=== PATIENT | female | born 1995 | race Caucasian/White ===

== ENCOUNTER 2016-08-09 07:40 | Inpatient (IN) | payer OTHER ==
[~2016-08-09] VITALS: Ht 165.1 cm; Wt 105.6 kg
[~2016-08-09 07:40] MED LIST: ABILIFY10 MG PO; ARIPIPRAZOLE15 MG PO; BENTYL10 MG PO; BUSPAR15 MG PO; ELAVIL50 MG PO; FETZIMA40 MG PO; FIORICET 50-301 EACH PO; LEXAPRO20 MG PO; MOTRIN400 MG PO; OMEPRAZOLE20 MG PO; TOPAMAX100 MG PO
[2016-08-09 08:44] LABS: INTERNAL CONTROL VALID? YES
[2016-08-09 08:50] LABS: AMPHETAMINE NEGATIVE (500 ng/mL); BARBITURATES NEGATIVE (200 ng/mL); BENZODIAZEPINES PRESUMPTIVE POSITIVE (150 ng/mL); COCAINE NEGATIVE (150 ng/mL); INTERNAL CONTROLS VALID? YES; METHADONE NEGATIVE (200 ng/mL); METHAMPHETAMINE NEGATIVE (500 ng/mL); OPIATES (MORPHINE) NEGATIVE (100 ng/mL); OXYCODONE NEGATIVE (100 ng/mL); PHENCYCLIDINE NEGATIVE (25 ng/mL); PROPOXYPHENE NEGATIVE (300 ng/mL); THC CANNABINOIDS NEGATIVE (50 ng/mL); TRICYCLIC ANTIDEPRESSANTS PRESUMPTIVE POSITIVE (300 ng/mL)
[2016-08-09 08:51] LABS: ADD MEDTOX COMMENT Y
[2016-08-09 09:17] LABS: BILIRUBIN NEGATIVE; BLOOD NEGATIVE; COLOR YELLOW ((YELLOW)); GLUCOSE (STRIP) NEGATIVE; KETONES NEGATIVE; LEUKOCYTES NEGATIVE; NITRITE NEGATIVE; PROTEIN (STRIP) NEGATIVE; SPECIFIC GRAVITY 1.014 (1.000-1.030); UROBILINOGEN 0.2 MG/DL (0.2-1.0)
[2016-08-09 09:18] LABS: ADD MIUA? NO; UCUL ADDED? NO
[2016-08-09 09:39] LABS: HEMATOCRIT 39.6 % (36.0-46.0); MCH 26.3 PG (29.0-34.0); MCHC 31.3 G/DL (30.0-36.0); MCV 83.9 FL (83-99); MEAN PLAT.VOLUME 10.6 uM^3 (9.5-12.4); PLATELET COUNT 396 K/uL (156-360); RBC DIS.WIDTH-CV 15.8 % (11.8-14.6); RED BLOOD COUNT 4.72 M/uL (3.80-5.20); WHITE BLOOD COUNT 10.7 K/uL (4.1-10.2)
[2016-08-09 09:39] LABS: BENZODIAZEPINES, URINE SCREEN POSITIVE (200 ng/mL)
[2016-08-09 09:50] LABS: CHLORIDE 108 mEq/L (99-109); POTASSIUM 4.1 mEq/L (3.7-5.4); SODIUM 138 mEq/L (136-147)
[2016-08-09 09:52] LABS: GLUCOSE 246 mg/dL (70-99)
[2016-08-09 09:53] LABS: ANION GAP 9 MEQ/L (2-14)
[2016-08-09 09:55] LABS: SERUM ETHYL ALCOHOL < 10 mg/dL
[2016-08-09 09:56] LABS: GFR ESTIMATE (CALCULATED) > 59 mL/min/
[2016-08-09 09:57] LABS: UREA NITROGEN (BUN) 11 mg/dL (9-23)
[2016-08-09 12:50] VITALS: BP 123/83
[2016-08-09] MEDS ORDERED: ABILIFY10 MG PO (12:56)
[2016-08-09] MEDS ORDERED: ZANTAC150 MG PO (12:57)
[2016-08-09] MEDS ORDERED: COMPAZINE10 MG PO (13:01)
[2016-08-09] MEDS ORDERED: NAPROSYN500 MG PO (13:03)
[2016-08-09] MEDS ORDERED: FALMINA1 EACH PO (13:03)
[2016-08-09] MEDS ORDERED: FETZIMA120 MG PO (13:04)
[2016-08-09] MEDS ORDERED: VALIUM10 MG PO (13:06)
[2016-08-09 15:55] VITALS: BP 122/69
[2016-08-09 20:37] LABS: EOSINOPHIL (%) 2.5 % (0-5); EOSINOPHIL COUNT 0.4 K/uL (0-0.3); HEMATOCRIT 41.9 % (36.0-46.0); IMMATURE GRANULOCYTE (%) 0.4 % (0.0-0.7); IMMATURE GRANULOCYTE COUNT 0.1 K/uL; LYMPHOCYTE COUNT 4.9 K/uL (1.0-2.8); MCHC 31.7 G/DL (30.0-36.0); MEAN PLAT.VOLUME 10.9 uM^3 (9.5-12.4); MONOCYTE (%) 6.6 % (3-12); MONOCYTE COUNT 1.1 K/uL (0-0.8); NEUTROPHIL (%) 59.3 % (45-76); NEUTROPHIL COUNT 9.4 K/uL (1.8-6.4); PLATELET COUNT 504 K/uL (156-360); RBC DIS.WIDTH-CV 15.9 % (11.8-14.6); RBC DIS.WIDTH-SD 49.3 % (39-53); RED BLOOD COUNT 4.93 M/uL (3.80-5.20); WHITE BLOOD COUNT 15.8 K/uL (4.1-10.2)
[2016-08-09 20:56] LABS: D-DIMER ELISA 0.48 mg/L FEU (< 0.57)
[2016-08-09 20:59] LABS: ANION GAP 9 MEQ/L (2-14); CHLORIDE 105 MEQ/L (99-109); POTASSIUM 4.5 MEQ/L (3.7-5.4); SAMPLE HEMOLYSIS CHECK 0; SAMPLE ICTERIC CHECK 0; SAMPLE LIPEMIA CHECK 0; SODIUM 139 MEQ/L (136-147); TOTAL BILIRUBIN 0.5 MG/DL (0.0-1.0)
[2016-08-09 21:05] LABS: ALKALINE PHOSPHATASE 168 IU/L (3-129); GFR ESTIMATE (CALCULATED) > 59 mL/min/; GLUCOSE 148 mg/dL (70-99); UREA NITROGEN (BUN) 13 mg/dL (9-23)
[2016-08-10 07:49] LABS: Estimated Average Glucose 151 mg/dL (70-123); HEMOGLOBIN A1c (GLYCOHEMOGLOB) 6.9 % HGB (Below 5.7)
== END 2016-08-09 23:39 | DRG 885 ==
LOC: EME 07:40 → EDOF 09:28 → 1WEST 12:20
PROVIDERS: Emergency Medicine; Hospitalist
DX: F31.81 Bipolar II disorder (principal); R45.851 Suicidal ideations; F43.10 Post-traumatic stress disorder, unspecified; R00.0 Tachycardia, unspecified; Z91.5 Personal history of self-harm; K21.9 Gastro-esophageal reflux disease without esophagitis; F41.9 Anxiety disorder, unspecified; G43.909 Migraine, unspecified, not intractable, without status migrainosus; K58.9 Irritable bowel syndrome, unspecified
CPT/HCPCS: 71020; 74177; 80048; 80053; 81003; 83036; 84443; 84703; 84999; 85025; 85027; 85379; 90839; 93005; 99281; 99285; G0480

== ENCOUNTER 2016-08-09 20:11 | Observation (INO) | payer OTHER ==
[~2016-08-09] VITALS: Ht 165.1 cm; Wt 105.1 kg
[~2016-08-09 20:11] MED LIST changes: +COMPAZINE10 MG PO; +FALMINA1 EACH PO; +FETZIMA120 MG PO; +NAPROSYN500 MG PO; +VALIUM10 MG PO; +ZANTAC150 MG PO
[2016-08-10 00:05] VITALS: BP 122/83
[2016-08-10 04:00] VITALS: BP 112/64
[2016-08-10 07:57] VITALS: BP 114/78
[2016-08-10 09:15] LABS: HEMATOCRIT 34.9 % (36.0-46.0); MCHC 31.5 G/DL (30.0-36.0); MCV 85.5 FL (83-99); PLATELET COUNT 398 K/uL (156-360); RBC DIS.WIDTH-CV 16.1 % (11.8-14.6); RBC DIS.WIDTH-SD 50.2 % (39-53); RED BLOOD COUNT 4.08 M/uL (3.80-5.20)
[2016-08-10 09:19] LABS: WHITE BLOOD COUNT 10.9 K/uL (4.1-10.2)
[2016-08-10 09:26] LABS: ALKALINE PHOSPHATASE 136 IU/L (3-129); ANION GAP 5 MEQ/L (2-14); CHLORIDE 109 MEQ/L (99-109); GFR ESTIMATE (CALCULATED) > 59 mL/min/; GLUCOSE 125 mg/dL (70-99); POTASSIUM 4.1 MEQ/L (3.7-5.4); SAMPLE HEMOLYSIS CHECK 0; SAMPLE ICTERIC CHECK 0; SAMPLE LIPEMIA CHECK 0; SODIUM 140 MEQ/L (136-147); TOTAL BILIRUBIN 0.4 MG/DL (0.0-1.0); UREA NITROGEN (BUN) 13 mg/dL (9-23)
[2016-08-10 11:38] VITALS: BP 112/72
[2016-08-10 12:56] LABS: Estimated Average Glucose 151 mg/dL (70-123); HEMOGLOBIN A1c (GLYCOHEMOGLOB) 6.9 % HGB (Below 5.7)
[2016-08-10 15:16] VITALS: BP 114/72
[2016-08-10 17:18] LABS: ADD MIUA? YES; BILIRUBIN NEGATIVE; BLOOD NEGATIVE; COLOR YELLOW ((YELLOW)); GLUCOSE (STRIP) NEGATIVE; KETONES NEGATIVE; LEUKOCYTES NEGATIVE; NITRITE NEGATIVE; PROTEIN (STRIP) NEGATIVE; SPECIFIC GRAVITY 1.016 (1.000-1.030); UROBILINOGEN 0.2 MG/DL (0.2-1.0)
[2016-08-10 17:48] LABS: BACTERIA NONE SEEN /HPF; EPITHELIAL CELLS RARE /HPF; MUCUS TRACE /LPF; RED BLOOD CELLS 0-5 /HPF (0-5); UCUL ADDED? NO; WHITE BLOOD CELLS NONE SEEN /HPF (0-5)
[2016-08-10 19:50] VITALS: BP 110/68
[2016-08-11] VITALS: BP 115/63
[2016-08-11 04:00] VITALS: BP 115/68
[2016-08-11 07:26] VITALS: BP 108/64
[2016-08-11 11:38] VITALS: BP 111/61
[2016-08-11 15:28] VITALS: BP 122/76
[2016-08-11] MEDS ORDERED: METFORMIN HCL500 MG PO (15:29)
== END 2016-08-11 17:24 | disposition home or self-care (01) ==
LOC: 5SOUTH 20:11
PROVIDERS: Hospitalist
DX: R00.0 Tachycardia, unspecified (principal); F32.9 Major depressive disorder, single episode, unspecified; R94.5 Abnormal results of liver function studies; E11.65 Type 2 diabetes mellitus with hyperglycemia; D72.829 Elevated white blood cell count, unspecified; E66.01 Morbid (severe) obesity due to excess calories; Z68.38 Body mass index [BMI] 38.0-38.9, adult; R10.813 Right lower quadrant abdominal tenderness; G89.4 Chronic pain syndrome; Z79.891 Long term (current) use of opiate analgesic; Z81.8 Family history of other mental and behavioral disorders
CPT/HCPCS: 76705; 80053; 81003; 83036; 83605; 85027; 87040; 93005; 93306; G0378; J0692; J1644; J1815; J7030; J7050; S0028

== ENCOUNTER 2017-07-12 17:35 | Inpatient (IN) | payer OTHER ==
[~2017-07-12] VITALS: Ht 165.1 cm; Wt 90.8 kg
[~2017-07-12 17:35] MED LIST changes: +METFORMIN HCL500 MG PO
[2017-07-12 18:41] LABS: HEMATOCRIT 41.7 % (36.0-46.0); HEMOGLOBIN 13.3 G/DL (11.9-15.5); MCH 26.2 PG (29.0-34.0); MCHC 31.9 G/DL (30.0-36.0); MCV 82.2 FL (83-99); PLATELET COUNT 609 K/uL (156-360); RBC DIS.WIDTH-CV 14.9 % (11.8-14.6); RBC DIS.WIDTH-SD 45.1 % (39-53); RED BLOOD COUNT 5.07 M/uL (3.80-5.20); WHITE BLOOD COUNT 18.1 K/uL (4.1-10.2)
[2017-07-12 18:50] LABS: CHLORIDE 108 mEq/L (99-109); SODIUM 136 mEq/L (136-147)
[2017-07-12 18:52] LABS: GLUCOSE 109 mg/dL (70-99)
[2017-07-12 18:56] LABS: CREATININE 0.8 mg/dL (0.6-1.3); GFR ESTIMATE (CALCULATED) > 59 mL/min/
[2017-07-12 18:57] LABS: UREA NITROGEN (BUN) 9 mg/dL (9-23)
[2017-07-12 19:02] LABS: TROP-I INTERPRETATION NEGATIVE; TROPONIN-I < 0.01 ng/mL (0.0-0.30)
[2017-07-12 20:30] LABS: APPEARANCE CLEAR ((CLEAR)); BILIRUBIN NEGATIVE; BLOOD MODERATE; COLOR YELLOW ((YELLOW)); GLUCOSE (STRIP) NEGATIVE; KETONES NEGATIVE; LEUKOCYTES TRACE; NITRITE NEGATIVE; PROTEIN (STRIP) NEGATIVE; SPECIFIC GRAVITY 1.013 (1.000-1.030); UROBILINOGEN 0.2 MG/DL (0.2-1.0)
[2017-07-12 20:38] LABS: BACTERIA RARE /HPF; CALCIUM OXALATE CRYSTALS 1+ /HPF; EPITHELIAL CELLS 1+ /HPF; MUCUS TRACE /LPF; RED BLOOD CELLS 0-5 /HPF (0-5); UCUL ADDED? YES
[2017-07-12 22:43] LABS: ACETAMINOPHEN (TYLENOL) < 10 mcg/mL (10-30); SALICYLATE < 5.0 MG/DL (15-30)
[2017-07-12 22:44] LABS: CREATINE KINASE 21 IU/L (1-294); TOTAL CK 21 IU/L (1-294)
[2017-07-12 22:50] LABS: CK-MB < 0.4 ng/mL (0.0-4.9)
[2017-07-12] MEDS ORDERED: BRINTELLIX20 MG PO (23:13)
[2017-07-12] MEDS ORDERED: LISINOPRIL2.5 MG PO (23:13)
[2017-07-12] MEDS ORDERED: METRONIDAZOLE500 MG PO (23:14)
[2017-07-12] MEDS ORDERED: LARISSIA-28 TA1 EACH PO (23:16)
[2017-07-12] MEDS ORDERED: SUCRALFATE1 GM PO (23:18)
[2017-07-12] MEDS ORDERED: PRAZOSIN HCL1 MG PO (23:20)
[2017-07-12] MEDS ORDERED: TOPIRAMATE100 MG PO (23:21)
[2017-07-12] MEDS ORDERED: DIAZEPAM10 MG PO (23:23)
[2017-07-12] MEDS ORDERED: INDERAL10 MG PO (23:24)
[2017-07-13 01:48] LABS: TROP-I INTERPRETATION NEGATIVE; TROPONIN-I < 0.01 ng/mL (0.0-0.30)
[2017-07-13 07:26] LABS: HEMATOCRIT 36.8 % (36.0-46.0); HEMOGLOBIN 11.7 G/DL (11.9-15.5); MCH 26.6 PG (29.0-34.0); MCHC 31.8 G/DL (30.0-36.0); MCV 83.6 FL (83-99); PLATELET COUNT 442 K/uL (156-360); RBC DIS.WIDTH-CV 15.1 % (11.8-14.6); RBC DIS.WIDTH-SD 45.6 % (39-53); WHITE BLOOD COUNT 10.5 K/uL (4.1-10.2)
[2017-07-13 07:35] LABS: ALBUMIN 3.3 g/dL (3.2-4.8)
[2017-07-13 07:36] LABS: CHLORIDE 109 mEq/L (99-109); POTASSIUM 3.6 mEq/L (3.7-5.4); SODIUM 135 mEq/L (136-147)
[2017-07-13 07:38] LABS: GLUCOSE 148 mg/dL (70-99); TOTAL PROTEIN 6.6 g/dL (6.4-8.3)
[2017-07-13 07:40] LABS: TOTAL BILIRUBIN 0.2 mg/dL (0.0-1.0)
[2017-07-13 07:41] LABS: ALKALINE PHOSPHATASE 150 IU/L (3-129)
[2017-07-13 07:42] LABS: CREATININE 0.7 mg/dL (0.6-1.3); GFR ESTIMATE (CALCULATED) > 59 mL/min/
[2017-07-13 07:43] LABS: AST (GOT) 22 IU/L (2-34); UREA NITROGEN (BUN) 7 mg/dL (9-23)
[2017-07-13 07:45] LABS: ALT (GPT) 35 IU/L (3-49)
[2017-07-13 07:47] LABS: TROP-I INTERPRETATION NEGATIVE; TROPONIN-I < 0.01 ng/mL (0.0-0.30)
[2017-07-13 08:14] LABS: THYROTROPIN (TSH) 3.4 MIU/L (0.4-5.5)
[2017-07-13 20:00] VITALS: BP 113/63
[2017-07-13 23:44] VITALS: BP 109/64
[2017-07-14 04:28] VITALS: BP 106/57
[2017-07-14 06:54] LABS: BASOPHIL (%) 0.5 % (0-1); BASOPHIL COUNT 0.1 K/uL (0-0.1); EOSINOPHIL (%) 2.3 % (0-5); EOSINOPHIL COUNT 0.3 K/uL (0-0.3); HEMOGLOBIN 10.6 G/DL (11.9-15.5); IMMATURE GRANULOCYTE (%) 0.3 % (0.0-0.7); LYMPHOCYTE (%) 38.5 % (15-42); LYMPHOCYTE COUNT 4.3 K/uL (1.0-2.8); MCH 26.3 PG (29.0-34.0); MCHC 31.2 G/DL (30.0-36.0); MCV 84.4 FL (83-99); MONOCYTE (%) 5.3 % (3-12); MONOCYTE COUNT 0.6 K/uL (0-0.8); NEUTROPHIL (%) 53.1 % (45-76); PLATELET COUNT 424 K/uL (156-360); RBC DIS.WIDTH-CV 15.1 % (11.8-14.6); RBC DIS.WIDTH-SD 46.3 % (39-53); RED BLOOD COUNT 4.03 M/uL (3.80-5.20); WHITE BLOOD COUNT 11.2 K/uL (4.1-10.2)
[2017-07-14 07:27] LABS: CHLORIDE 112 MEQ/L (99-109); CREATININE 0.7 MG/DL (0.6-1.3); GFR ESTIMATE (CALCULATED) > 59 mL/min/; SODIUM 141 MEQ/L (136-147); UREA NITROGEN (BUN) 8 mg/dL (9-23)
[2017-07-14 07:47] LABS: GLUCOSE 103 mg/dL (70-99)
[2017-07-14 08:27] VITALS: BP 105/62
[2017-07-14 08:28] VITALS: BP 101/56
[2017-07-14 08:30] VITALS: BP 104/66
[2017-07-14 11:48] VITALS: BP 116/66
[2017-07-14 20:19] VITALS: BP 109/58
[2017-07-15 00:39] VITALS: BP 106/66
[2017-07-15 04:50] VITALS: BP 108/64
[2017-07-15 06:37] LABS: C-REACTIVE PROTEIN 41.8 MG/L (0-10); CHLORIDE 107 MEQ/L (99-109); CREATININE 0.8 MG/DL (0.6-1.3); GFR ESTIMATE (CALCULATED) > 59 mL/min/; GLUCOSE 110 mg/dL (70-99); POTASSIUM 4.1 MEQ/L (3.7-5.4); SODIUM 141 MEQ/L (136-147); UREA NITROGEN (BUN) 8 mg/dL (9-23)
[2017-07-15 07:14] VITALS: BP 106/62
[2017-07-15 07:57] LABS: FERRITIN 25 NG/ML (10-291)
[2017-07-15 10:56] VITALS: BP 121/61
[2017-07-15 11:17] LABS: BASOPHIL (%) 0.3 % (0-1); EOSINOPHIL (%) 1.8 % (0-5); EOSINOPHIL COUNT 0.2 K/uL (0-0.3); HEMATOCRIT 36.6 % (36.0-46.0); HEMOGLOBIN 11.7 G/DL (11.9-15.5); IMMATURE GRANULOCYTE (%) 0.5 % (0.0-0.7); LYMPHOCYTE (%) 31.6 % (15-42); LYMPHOCYTE COUNT 3.8 K/uL (1.0-2.8); MCH 26.5 PG (29.0-34.0); MCV 82.8 FL (83-99); MONOCYTE (%) 4.6 % (3-12); MONOCYTE COUNT 0.6 K/uL (0-0.8); NEUTROPHIL (%) 61.2 % (45-76); NEUTROPHIL COUNT 7.3 K/uL (1.8-6.4); PLATELET COUNT 471 K/uL (156-360); RBC DIS.WIDTH-CV 15.1 % (11.8-14.6); RED BLOOD COUNT 4.42 M/uL (3.80-5.20); WHITE BLOOD COUNT 11.9 K/uL (4.1-10.2)
[2017-07-15 11:47] LABS: ERTH.SED.RATE 95 MM/HR (0-20)
[2017-07-15] MEDS ORDERED: INDERAL10 MG PO (12:34)
[2017-07-16 18:15] LABS: Flow Clinical Information R/O LYMPHOMA (()); Flow Number of Markers 22 (()); Flow Spec Viability 92 % (()); Flow Specimen Type PERIPHERAL BLOOD (())
== END 2017-07-15 14:28 | disposition home or self-care (01) | DRG 690 ==
LOC: EME 17:35 → EDOF 23:00 → ENRESERV 23:04 → 5SOUTH 07-13 19:20 → ENPENDDIS 07-15 13:41 → 5SOUTH 07-15 14:28
PROVIDERS: Hospitalist; Physician Assistant; Physician Assistant Medical
DX: N39.0 Urinary tract infection, site not specified (principal); R44.0 Auditory hallucinations; R44.2 Other hallucinations; F33.9 Major depressive disorder, recurrent, unspecified; E11.9 Type 2 diabetes mellitus without complications; R09.02 Hypoxemia; M79.7 Fibromyalgia; K76.0 Fatty (change of) liver, not elsewhere classified; K21.9 Gastro-esophageal reflux disease without esophagitis; F43.10 Post-traumatic stress disorder, unspecified; D64.9 Anemia, unspecified; K58.9 Irritable bowel syndrome, unspecified; J43.9 Emphysema, unspecified; R00.0 Tachycardia, unspecified; G43.909 Migraine, unspecified, not intractable, without status migrainosus; R26.2 Difficulty in walking, not elsewhere classified; R31.9 Hematuria, unspecified; R44.1 Visual hallucinations; F40.10 Social phobia, unspecified; D47.3 Essential (hemorrhagic) thrombocythemia; E66.9 Obesity, unspecified; Z79.84 Long term (current) use of oral hypoglycemic drugs; Z73.6 Limitation of activities due to disability; Z68.33 Body mass index [BMI] 33.0-33.9, adult; Z81.8 Family history of other mental and behavioral disorders
CPT/HCPCS: 71046; 71275; 74176; 80048; 80053; 81003; 81206 90; 81270 90; 82550 91; 82553; 82728; 82948; 83605; 83735; 84443; 84484; 84703; 85025; 85027; 85651; 86140; 87040; 87086; 90839; 93005; 99281; 99285; G0480; J0696; J1644; J1815; J7030